=== PATIENT | female | born 1990 ===

== ENCOUNTER 2020-05-19 12:52 | Inpatient (IN) | payer OTHER ==
[~2020-05-19] VITALS: Ht 167.6 cm; Wt 129.3 kg
[2020-05-19] MEDS ORDERED: PRENATAL TABLE1 EAC1 PO (13:40)
== END 2020-05-20 12:30 | disposition home or self-care (01) | DRG 819 ==
LOC: LDR 12:52
PROVIDERS: ADMIT Obstetrics & Gynecology Maternal & Fetal Medicine; ATTEND Obstetrics & Gynecology Maternal & Fetal Medicine
PROC: 4A1HXCZ Monitoring of Products of Conception, Cardiac Rate, External Approach (ICD-10-PCS; 2020-05-19)
PROC: 0UVC7ZZ Restriction of Cervix, Via Natural or Artificial Opening (ICD-10-PCS; principal; 2020-05-19 17:15)
DX: O34.32 Maternal care for cervical incompetence, second trimester (principal); Z3A.15 15 weeks gestation of pregnancy; Z20.828 Contact with and (suspected) exposure to other viral communicable diseases

== ENCOUNTER 2020-07-06 10:34 | Outpatient (CLI) | payer OTHER ==
[~2020-07-06 10:34] MED LIST: PRENATAL TABLE1 EAC1 PO
[2020-07-06] MEDS ORDERED: PROGESTERONA VAG (14:28)
== END 2020-07-06 11:20 | disposition home or self-care (01) ==
LOC: NST 10:34
PROVIDERS: ATTEND Obstetrics & Gynecology
DX: Z34.83 Encounter for supervision of other normal pregnancy, third trimester (principal)

== ENCOUNTER 2020-07-06 13:21 | Inpatient (IN) | payer OTHER ==
[~2020-07-06] VITALS: Ht 167.6 cm; Wt 285.0 kg
[2020-07-06] MEDS ORDERED: PROGESTERONA VAG (14:28)
== END 2020-07-08 10:09 | disposition home or self-care (01) | DRG 768 ==
LOC: LDR 13:21 → OB/GYN 07-07 15:04
PROVIDERS: ADMIT Obstetrics & Gynecology; ATTEND Obstetrics & Gynecology
PROC: 10E0XZZ Delivery of Products of Conception, External Approach (ICD-10-PCS; principal; 2020-07-07)
PROC: 0UCC7ZZ Extirpation of Matter from Cervix, Via Natural or Artificial Opening (ICD-10-PCS; 2020-07-07)
PROC: 4A1HXFZ Monitoring of Products of Conception, Cardiac Rhythm, External Approach (ICD-10-PCS; 2020-07-07)
PROC: 3E033VJ Introduction of Other Hormone into Peripheral Vein, Percutaneous Approach (ICD-10-PCS; 2020-07-07)
DX: O36.4XX0 Maternal care for intrauterine death, not applicable or unspecified (principal); Z37.1 Single stillbirth; O34.33 Maternal care for cervical incompetence, third trimester; Z3A.31 31 weeks gestation of pregnancy; Z20.828 Contact with and (suspected) exposure to other viral communicable diseases

== ENCOUNTER 2022-05-20 10:51 | Emergency (ER) | payer OTHER ==
[~2022-05-20] VITALS: Ht 167.6 cm; Wt 136.1 kg
[~2022-05-20 10:51] MED LIST changes: +PROGESTERONA VAG
== END 2022-05-20 14:40 | disposition home or self-care (01) ==
LOC: ER 10:51
DX: R10.11 Right upper quadrant pain (principal); M54.9 Dorsalgia, unspecified; Z91.018 Allergy to other foods